=== PATIENT | female | born 1980 | race Caucasian/White ===

== ENCOUNTER 2016-04-11 15:25 | Inpatient (IN) | payer OTHER ==
[2016-06-05 05:50] VITALS: BP 102/59; PULSE 73; RESP 16; TEMP 98.8; O2SAT 99
[2016-06-05] MEDS ORDERED: INSULIN HUMAN REGULAR 1,000 UNITS/10 ML VIAL SQ PRN (07:00)
[2016-06-05] MEDS ORDERED: LACTATED RINGER'S 1000 ML IV SCH (07:00)
[2016-06-05] MEDS ORDERED: SCOPOLAMINE 1.5 MG PATCH T-DERMAL SCH (07:00)
[2016-06-05] MEDS ORDERED: METOPROLOL TARTRATE 25 MG TAB PO PRN (07:00)
[2016-06-05] MEDS ORDERED: metroNIDAZOLE 500 MG INJ 100 ML IV SCH (07:00)
[2016-06-05] MEDS ORDERED: ONDANSETRON HCL 4 MG/2 ML VIAL IV PUSH SCH (07:00)
[2016-06-05] MEDS ORDERED: ACETAMINOPHEN 1000 MG/100 ML VIAL IV SCH (07:00)
[2016-06-05] MEDS ORDERED: APREPITANT 40 MG CAP PO SCH (07:00)
[2016-06-05] MEDS ORDERED: VANCOMYCIN 1,250 MG/NS 250 ML (for 70-84 kg) IV SCH ×2 (07:00)
[2016-06-05] MEDS ORDERED: SODIUM CHLORID 0.9% 500 ML IV SCH (07:00)
[2016-06-05] MEDS ORDERED: MULTTAB67 PO (07:47)
[2016-06-05] MEDS ORDERED: BUPIVACAINE/EPINEPHRINE 0.25% PF 30 ML VIAL ONE (09:10)
[2016-06-05] MEDS ORDERED: FAMOTIDINE 20 MG/2 ML VIAL ONE (09:22)
[2016-06-05] MEDS ORDERED: MIDAZOLAM HCL 2 MG/2 ML VIAL ONE (09:22)
[2016-06-05] MEDS ORDERED: DEXAMETHASONE SOD PHOS 4 MG/ML VIAL ONE (09:23)
[2016-06-05] MEDS ORDERED: fentaNYL CITRATE 250 MCG/5 ML AMP ONE ×2 (09:23→12:26)
[2016-06-05] MEDS ORDERED: diphenhydrAMINE HCL 50 MG/ML VIAL ONE (09:40)
[2016-06-05] MEDS ORDERED: METHYLENE BLUE 100 MG/10 ML VIAL IV ONE (10:40)
[2016-06-05] MEDS ORDERED: BUPIVACAINE/EPINEPHRINE 0.25% PF 30 ML VIAL INFIL ONE (10:40)
[2016-06-05] MEDS ORDERED: MORPHINE SULFATE 30 MG/30 ML PCA IV SCH (12:00)
[2016-06-05] MEDS ORDERED: SODIUM CHLORIDE 0.9% FLUSH 5 ML FLUSH IVF PRN (12:00)
[2016-06-05] MEDS ORDERED: LACTATED RINGER'S 1000 ML INJ 1,000 ML IV ONE (12:00)
[2016-06-05] MEDS ORDERED: ENALAPRILAT 1.25 MG/ML VIAL IV PUSH PRN (12:00)
[2016-06-05] MEDS ORDERED: diphenhydrAMINE HCL ELIXIR 12.5 MG/5 ML CUP PO PRN (12:00)
[2016-06-05] MEDS ORDERED: ePHEDrine/NS 25 MG/5 ML SYR IV ONE (12:00)
[2016-06-05] MEDS ORDERED: NEOSTIGMINE 3 MG/3 ML SYR IV ONE (12:00)
[2016-06-05] MEDS ORDERED: diphenhydrAMINE HCL 50 MG/ML VIAL IV PRN (12:00)
[2016-06-05] MEDS ORDERED: ONDANSETRON HCL 4 MG/2 ML VIAL IV PRN (12:00)
[2016-06-05] MEDS ORDERED: ACETAMINOPHEN 325MG/HYDROcodone 7.5MG/15ML UDC PO PRN (12:00)
[2016-06-05] MEDS ORDERED: ONDANSETRON HCL 4 MG/2 ML VIAL IV PUSH ONE (12:00)
[2016-06-05] MEDS ORDERED: NALOXONE HCL 0.4 MG/ML AMP IV PRN (12:00)
[2016-06-05] MEDS ORDERED: PROPOFOL 200 MG/20 ML AMP IV ONE (12:00)
[2016-06-05] MEDS ORDERED: DO NOT ADM ANY ANTICOAGULANT DRUGS XX PRN (12:20)
[2016-06-05] MEDS ORDERED: Post-op Orders (for Pharmacy) MISC XX ONE (12:20)
[2016-06-05] MEDS: D5-1/2 NS + KCL 20 MEQ INJ 1,000 ML IV SCH ×2 (12:22→19:30)
[2016-06-05] MEDS ORDERED: *morphine SULFATE 8 MG/ML PERIprocedure ONLY ONE ×2 (12:34→12:57)
[2016-06-05] MEDS: METOCLOPRAMIDE HCL 10 MG/2 ML VIAL IVS SCH ×2 (13:00→18:00)
[2016-06-05] MEDS: RESP: ALBUTEROL 2.5 MG/3 ML NEB (SCH) INH ×2 (13:15→16:40)
[2016-06-05] MEDS ORDERED: ACETAMINOPHEN 1000 MG/100 ML VIAL IV PRN (15:00)
[2016-06-05] MEDS ORDERED: ENOXAPARIN SODIUM 40 MG/0.4 ML SYRINGE SQ SCH (17:00)
[2016-06-05 20:00] VITALS: BP 109/66; PULSE 88; RESP 17; TEMP 98; O2SAT 98
[2016-06-05 20:20] VITALS: O2SAT 98
[2016-06-05] MEDS: PCA - TOTAL MG MORPHINE DELIVERED PER SHIFT SCH (20:31)
[2016-06-05] MEDS: SODIUM CHLORIDE 0.9% FLUSH 5 ML FLUSH IVF SCH (21:00)
[2016-06-06] VITALS (8 sets, daily range): BP systolic 108–135; BP diastolic 59–75; PULSE 72–86; RESP 15–20; TEMP 97.6–98.9; O2SAT 96–100
[2016-06-06] MEDS: RESP: ALBUTEROL 2.5 MG/3 ML NEB (SCH) INH ×6 (00:44→20:13)
[2016-06-06] MEDS: D5-1/2 NS + KCL 20 MEQ INJ 1,000 ML IV SCH ×5 (01:17→19:57)
[2016-06-06] MEDS: METOCLOPRAMIDE HCL 10 MG/2 ML VIAL IVS SCH ×2 (01:34→05:23)
[2016-06-06] MEDS: PCA - TOTAL MG MORPHINE DELIVERED PER SHIFT SCH (05:26)
[2016-06-06 05:47] LABS: AUTOMATED NEUTROPHIL # 6.2 TH/MM3 (1.8-7.7); BASOPHIL % 0.3 % (0.0-2.0); EOSINOPHIL % 0.3 % (0.0-4.0); HEMATOCRIT 32.4 % (35.0-46.0); HEMO FLAGS DIFF FINAL; LYMPH % 16.9 % (9.0-44.0); LYMPHOCYTE # 1.4 TH/MM3 (1.0-4.8); MEAN CORPUSCULAR HEMOGLOBIN 27.4 PG (27.0-34.0); MEAN CORPUSCULAR HGB CONC 33.5 % (32.0-36.0); MONO % 8.5 % (0.0-8.0); PLATELET COUNT 234 TH/MM3 (150-450); RED BLOOD COUNT 3.96 MIL/MM3 (4.00-5.30); RED CELL DISTRIBUTION WIDTH 14.5 % (11.6-17.2); WHITE BLOOD COUNT 8.4 TH/MM3 (4.0-11.0)
[2016-06-06 06:11] LABS: BICARBONATE 25.3 MEQ/L (21.0-32.0); POTASSIUM 3.2 MEQ/L (3.5-5.1)
[2016-06-06] MEDS: PANTOPRAZOLE SODIUM 40 MG VIAL IVP SCH (09:00)
[2016-06-06] MEDS: SODIUM CHLORIDE 0.9% FLUSH 5 ML FLUSH IVF SCH (09:00)
[2016-06-06] MEDS: PANTOPRAZOLE SOD 40 MG DELAYED RELEASE TAB PO SCH (09:16)
[2016-06-06] MEDS ORDERED: METOCLOPRAMIDE HCL 10 MG/2 ML VIAL IVS PRN (12:00)
[2016-06-06] MEDS: ONDANSETRON HCL 4 MG/2 ML VIAL IV PRN ×3 (12:16→22:48)
[2016-06-06] MEDS: POTASSIUM CHLOR 20 MEQ PREMIX 100 ML IV SCH ×2 (12:17→15:33)
[2016-06-06] MEDS: ACETAMINOPHEN 325MG/HYDROcodone 7.5MG/15ML UDC PO PRN ×2 (17:04→22:47)
[2016-06-07] VITALS: BP 124/66; PULSE 77; RESP 19; TEMP 98.6; O2SAT 95
[2016-06-07] MEDS: RESP: ALBUTEROL 2.5 MG/3 ML NEB (SCH) INH ×3 (00:57→07:39)
[2016-06-07 07:39] VITALS: O2SAT 98
[2016-06-07 08:00] VITALS: BP 123/64; PULSE 87; RESP 19; TEMP 96.7; O2SAT 99
--- NOTE | 2016-06-07 08:21 | HHI.PR ---
Subjective Subjective Notes Pt comfortable no cp no sob Objective Vitals/I&O Vital Signs Date Time Temp Pulse Resp B/P Pulse Ox O2 Delivery O2 Flow Rate FiO2 06/07/16 07:39 98 21 06/07/16 00:00 98.6 77 19 124/66 06/05/16 20:20 Nasal Cannula 2.00 Abdomen: Non-tender Extremities: Perfused Wound Wound : Wound Location: Abdomen Appearance: Clean & Dry A/P Assessment and Plan S/P lap sleeve Doing well D/C home Kishore Estevez MD Jun 07, 2016 08:21
[2016-06-07] MEDS: SODIUM CHLORIDE 0.9% FLUSH 5 ML FLUSH IVF SCH (09:00)
[2016-06-07] MEDS: PANTOPRAZOLE SODIUM 40 MG VIAL IVP SCH (09:00)
[2016-06-07] MEDS: PANTOPRAZOLE SOD 40 MG DELAYED RELEASE TAB PO SCH (09:08)
[2016-06-07] MEDS: ACETAMINOPHEN 325MG/HYDROcodone 7.5MG/15ML UDC PO PRN (09:08)
[2016-06-07 10:08] VITALS: RESP 20
--- NOTE | 2016-06-26 10:47 | MP ---
cc: DOMENIC ESTEVEZ DATE OF SURGERY: 06/05/2016 1980 PREOPERATIVE DIAGNOSIS Severe obesity with BMI of 34, complicated by obstructive sleep apnea. POSTOPERATIVE DIAGNOSIS Severe obesity with BMI of 34, complicated by obstructive sleep apnea. PROCEDURE Laparoscopic Zaira-en-Y gastric bypass, 100 cm Zaira limb, antegastric, antecolic. SURGEON Domenic Estevez MD ANESTHESIA General endotracheal anesthesia. ESTIMATED BLOOD LOSS Scant. FINDINGS Fatty liver. SPECIMENS None. COMPLICATIONS None. OPERATION The patient was brought to the operating room and placed on the operating table in supine position, bilateral sequential inflation device placed on lower extremities, general anesthesia instituted, antibiotics initiated. The abdomen was prepped and draped sterilely. A poin 18-cm distal to the xiphoid in the midline anesthetized with 0.25% Marcaine with epinephrine. The skin incision was made, a 5-mm OptiView port placed under direct vision and pneumoperitoneum was created. Under direct vision a 5-mm left upper quadrant, 12-mm left upper quadrant, 12-mm right upper quadrant and 5-mm right upper quadrant ports were placed. Prior to placement of all ports, the skin and peritoneum were anesthetized with 0.25% Marcaine with epinephrine. The patient's omentum was lifted into the upper abdomen. It was split down the middle to create a path for the Zaira limb. The ligament of Treitz was identified, a point 40 cm distal identified. The small bowel was divided in this region using an [place] Flex stapler vascular load reinforced with SeamGuard. The distal segment was brought up for a distance of 100 cm, enterotomy created in this region, enterotomy in the biliopancreatic limb and a [id number] stapled jejunojejunostomy created in the usual manner. The mesenteric defect at the jejunojejunostomy was closed with 2-0 Surgidac suture in a running manner. The patient was placed in reverse Trendelenburg position with the left side up. The Ivette-Flex retractor was placed. The left lobe of the liver was retracted. The angle of His was taken down bluntly, a point 5 cm distal to the GE junction along the lesser curve identified, the lesser sac entered using blunt dissection. The stomach was partitioned horizontally using an [place]-Flex stapler blue load, an additional firing taken directed towards the angle of His to completely divide the stomach. A gastrotomy created in the new stomach, enterotomy in the Zaira limb and gastrojejunostomy created, stomal opening of 2 cm. An 18-[place] OG tube was placed across the anastomosis, the defect then closed in two layers of running 2-0 Vicryl. Prior to placement of the second layer, methylene blue instilled through the OG tube. There was no evidence of extravasation. Evicel was then placed over the gastrojejunostomy, jejunojejunostomy and all staple lines. The operative field inspected and hemostasis was present. The CO2 was released, all ports were removed. All skin incisions were closed with 4-0 Monocryl. The abdominal wall was cleaned and a sterile dressing placed. The patient was awakened and taken to the recovery room. MD BASHIR Hernández/MAXIMINO /9:06 AM /10:30 AM
== END 2016-06-07 11:58 | disposition home or self-care (01) | DRG 621 ==
LOC: HSDI 06-05 05:40 → N07A 06-05 19:52 → N07B 06-05 19:53
PROVIDERS: ADMIT Surgery; ATTEND Surgery
PROC: 0D164ZA Bypass Stomach to Jejunum, Percutaneous Endoscopic Approach (ICD-10-PCS; principal; 2016-06-05 09:51)
DX: E66.9 Obesity, unspecified (principal); K76.0 Fatty (change of) liver, not elsewhere classified; G47.30 Sleep apnea, unspecified; K21.9 Gastro-esophageal reflux disease without esophagitis; Z68.34 Body mass index [BMI] 34.0-34.9, adult; G47.33 Obstructive sleep apnea (adult) (pediatric)
CPT/HCPCS: 80048; 83735; 85025; 94150; 94640; 94664; J0131; J1100; J1200; J1650; J2250; J2270; J2405; J2710; J2765; J3010; J3370; J3480; J7050; J7120; J7613; J8501